=== PATIENT | male | born 1960 | race Caucasian/White ===

== ENCOUNTER 2017-02-25 18:10 | Emergency (ER) | payer OTHER ==
[2017-02-25] MEDS ORDERED: CLINDAMYCIN 150 MG CAPSULE PO STA (20:40)
[2017-02-25] MEDS ORDERED: oxyCOD/ACETAMIN 5 MG/325 MG TABLET PO STA (20:40)
--- NOTE | 2017-02-25 20:42 | ED Physician Documentation ---
PD HPI HEENT - Stated complaint Stated Complaint: TOOTH PX - Chief complaint Chief Complaint: Heent - History obtained from History obtained from: Patient, Family - History of Present Illness Timing - onset: Chronic Timing - details: Gradual onset, Still present Location: Tooth, Mouth Worsens: Swalllowing, Temperatures Associated symptoms: No: Fever, Congestion, Rhinorrhea, Unable to swallow, Facial swelling Similar symptoms before: No diagnosis Recently seen: Not recently seen - Additional information Additional information: Patient is a 56 year old male who is presenting to the emergency department for tooth pain. Patient has very poor dentition but states that he has a fear of dentists so has not been in years. Patient states that they pain in his mouth has become progressively worse so he came for evaluation. Review of Systems Constitutional: denies: Fever, Chills Eyes: denies: Irritation Ears: reports: Reviewed and negative Throat: reports: Dental pain / toothache. denies: Sore throat, Swollen tonsils Cardiac: denies: Chest pain / pressure Respiratory: reports: Reviewed and negative GI: denies: Nausea, Vomiting : reports: Reviewed and negative Skin: denies: Rash, Lesions Neurologic: denies: Generalized weakness, Focal weakness Immunocompromised: denies: Immunocompromised PD PAST MEDICAL HISTORY - Past Medical History Past Medical History: Yes Cardiovascular: Hypertension, High cholesterol Endocrine/Autoimmune: Type 2 diabetes GI: GERD Other Past Medical History: gout, AAA - Past Surgical History Past Surgical History: Yes General: Cholecystectomy - Present Medications Home Medications: Ambulatory Orders Medication Instructions Recorded Confirmed Allopurinol 300 mg PO DAILY 02/25/17 02/25/17 Aspirin [Aspirin EC] 81 mg PO DAILY 02/25/17 02/25/17 Atorvastatin [Lipitor] 10 mg PO DAILY 02/25/17 02/25/17 Bumetanide 2 mg PO DAILY 02/25/17 02/25/17 Chlorhexidine Gluconate 15 ml MM Q6H #473 ml 02/25/17 Citalopram [CeleXA] 10 mg PO DAILY 02/25/17 02/25/17 Clindamycin HCl 300 mg PO Q6H 7 Days capsule 02/25/17 Folic Acid 1 mg PO DAILY 02/25/17 02/25/17 Insulin Aspart [NovoLOG] 1 unit SQ DAILY 02/25/17 02/25/17 Insulin Degludec [Tresiba 1 unit SQ DAILY 02/25/17 02/25/17 Flextouch U-200] Losartan [Cozaar] 50 mg PO DAILY 02/25/17 02/25/17 Methotrexate 2.5 mg PO DAILY 02/25/17 02/25/17 Metolazone 2.5 mg PO DAILY 02/25/17 02/25/17 Montelukast [Singulair] 10 mg PO DAILY 02/25/17 02/25/17 Potassium Chloride 20 meq PO DAILY 02/25/17 02/25/17 amLODIPine [Norvasc] 5 mg PO DAILY 02/25/17 02/25/17 raNITIdine [Zantac] 150 mg PO DAILY 02/25/17 02/25/17 - Allergies Allergies/Adverse Reactions: Allergies Allergy/AdvReac Type Severity Reaction Status Date / Time No Known Drug Allergies Allergy Verified 02/25/17 18:16 - Social History Does the pt smoke?: No Smoking Status: Never smoker Does the pt drink ETOH?: No Does the pt have substance abuse?: No PD ED PE NORMAL - Vitals Vital signs reviewed: Yes - General General: Alert and oriented X 3 - HEENT HEENT: Atraumatic, PERRL, Pharynx benign - Neck Neck: Supple, no meningeal sign, No adenopathy - Cardiac Cardiac: RRR, No murmur - Respiratory Respiratory: No respiratory distress - Abdomen Abdomen: Non distended - Derm Derm: Normal color, Warm and dry - Extremities Extremities: No deformity - Neuro Neuro: Alert and oriented X 3, No motor deficit, No sensory deficit, Normal speech - Psych Psych: Normal mood, Normal affect PD ED PE EXPANDED - HEENT HEENT: Dental decay (very poor dentition with multiple caries, no abscess or fluid collection), Dental TTP. No: Dental abscess Results - Vitals Vitals: Vital Signs - 24 hr 02/25/17 02/25/17 18:14 21:09 Temperature 35.9 C L Heart Rate 101 H 102 H Respiratory 16 17 Rate Blood Pressure 121/77 127/73 O2 Saturation 93 97 Oxygen O2 Source Room air PD MEDICAL DECISION MAKING - ED course Complexity details: reviewed old records, re-evaluated patient, considered differential, d/w patient, d/w family ED course: Patient was seen and examined at bedside. Patient had multiple caries but no abscess or fluid collection. Patient was treated with clindamycin and was stable for discharge with outpatient follow up. Departure - Departure Disposition: 01 Home, Self Care Clinical Impression: Dental caries Condition: Good Instructions: ED Tooth Pain Follow-Up: primary,dentist [Other] - Within 3 Days Prescriptions: Chlorhexidine Gluconate 15 ml MM Q6H #473 ml Clindamycin HCl 300 mg PO Q6H 7 Days capsule Comments: Your symptoms today are due to dental caries. the only way to deal with the issue is to follow up with a dentist. You should take your antibiotic with yogurt or probiotic to help reduce the GI side effects. You can take motrin or tylenol as needed for pain. You may return to the emergency department at any time for new, worsening or uncontrollable symptoms. Discharge Date/Time: 02/25/17 21:13
[2017-02-25] MEDS ORDERED: oxyCOD/ACETAMIN 5 MG/325 MG TABLET PO ONE (21:08)
[2017-02-25] MEDS ORDERED: CLINDAMYCIN 150 MG CAPSULE PO ONE ×2 (21:08→21:12)
[2017-02-25 21:10] VITALS: BP 127/73
== END 2017-02-25 21:13 | disposition home or self-care (01) ==
LOC: ED 18:10
DX: K02.9 Dental caries, unspecified (principal); I10 Essential (primary) hypertension; E11.9 Type 2 diabetes mellitus without complications; Z79.4 Long term (current) use of insulin; E78.00 Pure hypercholesterolemia, unspecified; Z79.82 Long term (current) use of aspirin
CPT/HCPCS: 99283; A9270